=== PATIENT | female | born 1995 | race Caucasian/White ===

== ENCOUNTER 2021-09-06 19:42 | Emergency (ER) | payer OTHER, SELFPAY ==
[2021-09-06 19:49] VITALS: BP 128/77; BP 130/90; PULSE 90; PULSE 91; RESP 18; TEMP 37; O2SAT 97; O2SAT 98; BMI 18.8
--- NOTE | 2021-09-06 20:02 | ED.ALCOHOL ---
HPI - Alcohol General Chief Complaint: ETOH/Substance Use Stated Complaint: etoh Time Seen by Provider: 09/06/21 20:00 Source: patient Mode of arrival: EMS Limitations: no limitations History of Present Illness HPI narrative: 25 yo arrived by ambulance for ? alcohol intoxication. Pt states that she took hallucinogen and she fells well. She denies SI/HI/she does not want detox Last drink: Hours (ago) (2) Chronic alcohol use: No Previous visits for alcohol intoxication: No Recent trauma: No Associated symptoms: denies other symptoms Related Data Allergies Allergy/AdvReac Type Severity Reaction Status Date / Time No Known Allergies Allergy Verified 09/06/21 19:51 Review of Systems Review of Systems: Yes Unobtainable due to mental status Constitutional: Constitutional: Reports no additional constitutional complaints ENT: Reports system reviewed and no additional complaints, except as documented Respiratory: Respiratory: Reports no additional respiratory complaints Neurologic: Reports system reviewed and no additional complaints, except as documented Psychiatric: Psychiatric: Reports anxiety PMFSH Past Medical History PMFSH Narrative: anxiety Social History Social History Advance Directives: No Advance Directives Information Provided: No Physical Exam ED Vital Signs: Vital Signs - 24 hr 09/06/21 19:49 Temperature 98.6 F Pulse Rate 91 Respiratory Rate 18 Blood Pressure 128/77 Pulse Oximetry 97 Oxygen Delivery Method Room Air BMI result Body Mass Index 18.8 Const General: cooperative, comfortable and no acute distress Nutritional Appearance: well nourished Orientation/consciousness: patient oriented x3 Limitations: no limitations HENMT Head: Yes normal to inspection General nose exam: Normal external nose present Face and sinus: Yes normal facial exam Mouth: Normal oral and palatal mucosa present Throat: Yes posterior oropharynx normal Neck Neck: Yes normal visual inspection and Yes full ROM Chest Chest palpation & inspection: normal inspection of the chest Resp Effort & Inspection: normal respiratory effort Auscultation: clear to auscultation bilaterally Cardio Jugular venous distension: no JVD Rate: regular rate Rhythm: regular rhythm GI Inspection: Yes normal to inspection Palpation (GI): Soft to palpation, not firm, nontender, no guarding and not rigid General: Yes no CVA tenderness Back/Spine/Pelvis Back: no CVA tenderness Skin General skin exam: no rashes or lesions noted Neuro General: patient oriented x3 Cranial nerves: Yes CN's II-XII intact bilaterally Course Reevaluation(s) Reevaluation #1: Seen by recovery couch She has steady gait,she has reliable ride the mother,she is no SI/no HI,she does not want detox will d/c Time: 20:53 Discharge Plan Discharge Clinical Impression: Drug abuse Patient Disposition: Home, Self-Care Instructions: Polysubstance Abuse (ED) Interventions: ED Discharge Assessment Last Done: 09/06/21 21:41 Discharge Date/Time: 09/06/21 21:42
--- NOTE | 2021-09-06 20:56 | MHC.RECOVSUP ---
? Reason for consult:Recovery Support o Current location: [facility] o Identified substance use concern: possible PRABHJOT - Support o Community resources provided o Harm reduction discussion ? Additional information:?Patient consultation with SWAPNA Maher before point of entry. Patient is a 25 year old female who ingested Ketamine before a concert and felt sick and drove herself to the ER. Patient states she is still in morning of her boyfriends and has no issues with Substance Use Disorder at this time. I was able to review harm reduction strategies and left her with community resources.
== END 2021-09-06 21:42 | disposition home or self-care (01) ==
LOC: HO.ED 21:33
PROVIDERS: Emergency Provider Emergency Medicine
DX: F16.10 Hallucinogen abuse, uncomplicated (principal); F41.9 Anxiety disorder, unspecified
CPT/HCPCS: 99282; 99283